=== PATIENT | male | born 1965 | race Caucasian/White ===

== ENCOUNTER 2017-12-03 18:42 | Emergency (ER) | payer OTHER ==
[~2017-12-03] VITALS: Ht 188 cm; Wt 99.3 kg
[2017-12-03] MEDS ORDERED: METFORMIN HCL500 MG PO (18:53)
[2017-12-03] MEDS ORDERED: WELLBUTRIN XL300 MG PO (18:53)
[2017-12-03] MEDS ORDERED: ASPIRIN325 PO (18:54)
[2017-12-03] MEDS ORDERED: NORFLEX100 MG PO (20:48)
[2017-12-03] MEDS ORDERED: NAPROSYN500 MG PO (20:48)
== END 2017-12-03 21:11 | disposition home or self-care (01) ==
LOC: ER 18:42
DX: S39.012A Strain of muscle, fascia and tendon of lower back, initial encounter (principal); S16.1XXA Strain of muscle, fascia and tendon at neck level, initial encounter; S29.012A Strain of muscle and tendon of back wall of thorax, initial encounter; F17.210 Nicotine dependence, cigarettes, uncomplicated; F41.9 Anxiety disorder, unspecified; V43.52XA Car driver injured in collision with other type car in traffic accident, initial encounter; Y93.I9 Activity, other involving external motion; Y92.89 Other specified places as the place of occurrence of the external cause; Y99.8 Other external cause status